=== PATIENT | male | born 1995 | race Hispanic/Latino ===

== ENCOUNTER 2018-05-11 02:58 | Emergency (ER) | payer MEDICARE, OTHER ==
[2018-05-11 03:27] VITALS: BP 133/88; PULSE 102; TEMP 98.8; O2SAT 100
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
[2018-05-11 04:02] VITALS: RESP 14
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
--- NOTE | 2018-05-11 10:27 | RAD ---
Date of service: 05/11/2018 PROCEDURE: Cervical Spine Radiographs. HISTORY: Pain. COMPARISON: None. FINDINGS: BONES: There is normal alignment of the cervical vertebral bodies. There is normal cervical lordosis. There is no acute fracture or traumatic anterior listhesis. The craniocervical junction is normal. The atlantoaxial joint is normal. DISC SPACES: Normal. SOFT TISSUES: Normal. No prevertebral soft tissue swelling. OTHER FINDINGS: None. IMPRESSION: No acute fracture or traumatic anterior listhesis.
== END 2018-05-11 04:00 | disposition home or self-care (01) ==
LOC: C.ER 02:58
DX: S13.4XXA Sprain of ligaments of cervical spine, initial encounter (principal); S10.93XA Contusion of unspecified part of neck, initial encounter; V89.2XXA Person injured in unspecified motor-vehicle accident, traffic, initial encounter